=== PATIENT | male | born 1980 | race Caucasian/White ===

== ENCOUNTER 2017-11-16 19:50 | Emergency (ER) | payer SELFPAY ==
[2017-11-16 20:02] VITALS: BP 141/87; PULSE 98; O2SAT 95
--- NOTE | 2017-11-16 20:23 | ERPHSYRPT ---
- History of Present Illness Time Seen by Provider: 11/16/17 20:21 Source: patient, police Exam Limitations: no limitations Patient Subjective Stated Complaint: pt got pulled over and is here for medical clearance. Triage Nursing Assessment: see above Physician History: 37-year-old male brought into the emergency room after police called them drinking and driving, so they brought him in for medical clearance so that they can put him back in assisted. Timing/Duration: today Allergies/Adverse Reactions: No Known Drug Allergies Allergy (Verified 01/03/16 13:45) Home Medications: Clonazepam 0.5 mg PO BID 01/03/16 [History] Divalproex Sodium [Depakote] 1,500 mg PO DAILY 01/03/16 [History] Hx Tetanus, Diphtheria Vaccination/Date Given: Yes Hx Influenza Vaccination/Date Given: No Hx Pneumococcal Vaccination/Date Given: No Immunizations Up to Date: Yes - Review of Systems Constitutional: No Fever, No Chills Eyes: No Symptoms Ears, Nose, & Throat: No Symptoms Respiratory: No Cough, No Dyspnea Cardiac: No Chest Pain, No Edema, No Syncope Abdominal/Gastrointestinal: No Abdominal Pain, No Nausea, No Vomiting, No Diarrhea Genitourinary Symptoms: No Dysuria Musculoskeletal: No Back Pain, No Neck Pain Skin: No Rash Neurological: No Dizziness, No Focal Weakness, No Sensory Changes Psychological: No Symptoms Endocrine: No Symptoms All Other Systems: Reviewed and Negative - Past Medical History Pertinent Past Medical History: Yes Neurological History: No Pertinent History ENT History: No Pertinent History Cardiac History: No Pertinent History Respiratory History: No Pertinent History Endocrine Medical History: No Pertinent History Musculoskeletal History: No Pertinent History GI Medical History: No Pertinent History History: No Pertinent History Psycho-Social History: No Pertinent History Male Reproductive Disorders: No Pertinent History - Past Surgical History Past Surgical History: Yes Neuro Surgical History: No Pertinent History Cardiac: No Pertinent History Respiratory: No Pertinent History Gastrointestinal: No Pertinent History Genitourinary: No Pertinent History Musculoskeletal: Orthopedic Surgery Male Surgical History: No Pertinent History Other Surgical History: pins placed for tibia and fibia - Social History Smoking Status: Current every day smoker How long have you smoked: 20 Exposure to second hand smoke: Yes Drug Use: none, other Patient Lives Alone: No - Nursing Vital Signs Nursing Vital Signs: Initial Vital Signs Temperature 98.2 F 11/16/17 19:50 Pulse Rate 98 H 11/16/17 19:50 Respiratory Rate 18 11/16/17 19:50 Blood Pressure 141/87 11/16/17 19:50 O2 Sat by Pulse Oximetry 95 11/16/17 19:50 Pain Scale Pain Intensity 0 - Physical Exam General Appearance: no apparent distress, alert Eye Exam: PERRL/EOMI, eyes nml inspection Ears, Nose, Throat Exam: normal ENT inspection, TMs normal, pharynx normal, moist mucous membranes Neck Exam: normal inspection, non-tender, supple, full range of motion Respiratory Exam: normal breath sounds, lungs clear, No respiratory distress Cardiovascular Exam: regular rate/rhythm, normal heart sounds, normal peripheral pulses Gastrointestinal/Abdomen Exam: soft, normal bowel sounds, No tenderness, No mass Back Exam: normal inspection, normal range of motion, No CVA tenderness, No vertebral tenderness Extremity Exam: normal inspection, normal range of motion, pelvis stable Neurologic Exam: alert, oriented x 3, cooperative, normal mood/affect, nml cerebellar function, nml station & gait, sensation nml, No motor deficits Skin Exam: normal color, warm, dry, No rash Lymphatic Exam: No adenopathy SpO2: 95 Oxygen Delivery: Room Air - Course Nursing assessment & vital signs reviewed: Yes Ordered Tests: Active Orders 24 hr Category Date Time Status ETHYL ALCOHOL Stat Lab 11/16/17 20:13 Ordered Urine Triage Profile Stat Lab 11/16/17 20:13 Uncollected - Progress Progress: improved Progress Note: 11/16/17 20:34 Patient has refused for blood draw for alcohol level. Patient is otherwise hemodynamically stable, alert, awake, oriented to time, place and person and answer all the questions appropriately. So we will send patient back into the police custody with medical clearance. Counseled pt/family regarding: drug and/or alcohol abuse, diagnosis - Departure Time of Disposition: 20:35 Departure Disposition: Care Home/Long-Term Clinical Impression: Alcohol abuse, episodic drinking behavior Condition: Stable Critical Care Time: No Referrals: DOCTOR,NO FAMILY [Primary Care Provider] - Instructions: Alcohol Abuse and Alcoholism (DC)
== END 2017-11-16 20:38 | disposition home or self-care (01) ==
LOC: ED 19:50
DX: F10.10 Alcohol abuse, uncomplicated (principal)
CPT/HCPCS: 99283

== ENCOUNTER 2020-04-21 16:25 | Emergency (ER) | payer OTHER ==
--- NOTE | 2020-04-21 16:27 | ERPHSYRPT ---
- History of Present Illness Time Seen by Provider: 04/21/20 16:27 Source: patient Exam Limitations: no limitations Physician History: This is a 40-year-old white male who was scratched by his dog this past weekend. He was keeping it clean with daily showers but noticed that the redness was not going away there was some blistering in this area. Patient does wear hat at work it does tend to rub on that site. He noticed some blistering today with a little bit of white drainage from one of the blister sites and he thought maybe it should be evaluated. Patient has not had fevers. There is not a lot of pain present. Occurred: other (This past weekend) Severity: mild Head Injury Location: frontal (Right forehead) Method of Injury: other (Dog scratch) Loss of Consciousness: no loss of consciousness Associated Symptoms: denies symptoms Allergies/Adverse Reactions: No Known Drug Allergies Allergy (Verified 04/21/20 16:32) Hx Tetanus, Diphtheria Vaccination/Date Given: Yes Hx Influenza Vaccination/Date Given: No Hx Pneumococcal Vaccination/Date Given: No Travel Risk - International Travel Have you traveled outside of the country in past 3 weeks: No - Coronavirus Screening Are you exhibiting any of the following symptoms?: No Close contact with a COVID-19 positive Pt in past 14-21 Days: No - Review of Systems Constitutional: No Symptoms Eyes: No Symptoms Ears, Nose, & Throat: No Symptoms Respiratory: No Symptoms Cardiac: No Symptoms Abdominal/Gastrointestinal: No Symptoms Genitourinary Symptoms: No Symptoms Musculoskeletal: No Symptoms Skin: Cellulitis (Mild localized right forehead) Neurological: No Symptoms Psychological: No Symptoms Endocrine: No Symptoms Hematologic/Lymphatic: No Symptoms Immunological/Allergic: No Symptoms All Other Systems: Reviewed and Negative - Past Medical History Pertinent Past Medical History: Yes Neurological History: No Pertinent History ENT History: No Pertinent History Cardiac History: No Pertinent History Respiratory History: No Pertinent History Endocrine Medical History: No Pertinent History Musculoskeletal History: No Pertinent History GI Medical History: No Pertinent History History: No Pertinent History Psycho-Social History: No Pertinent History Male Reproductive Disorders: No Pertinent History - Past Surgical History Past Surgical History: Yes Neuro Surgical History: No Pertinent History Cardiac: No Pertinent History Respiratory: No Pertinent History Gastrointestinal: No Pertinent History Genitourinary: No Pertinent History Musculoskeletal: Orthopedic Surgery Male Surgical History: No Pertinent History Other Surgical History: pins placed for tibia and fibia - Social History Smoking Status: Current every day smoker How long have you smoked: 20 Exposure to second hand smoke: Yes Drug Use: none, other Patient Lives Alone: No - Nursing Vital Signs Nursing Vital Signs: Initial Vital Signs Temperature 98.4 F 04/21/20 16:33 Pulse Rate 79 04/21/20 16:33 Respiratory Rate 18 04/21/20 16:33 Blood Pressure 127/110 04/21/20 16:33 O2 Sat by Pulse Oximetry 99 04/21/20 16:33 Pain Scale Pain Intensity 3 - Ivan Coma Score Best Eye Response ([place]): (4) open spontaneously Best Verbal Response ([place]): (5) oriented Best Motor Response (Ivan): (6) obeys commands Ivan Total: 15 - Physical Exam General Appearance: no apparent distress, alert Head Injury: tenderness (Single line abrasions with healing eschar overlying measuring approximately 2-1/2 cm. There is redness with a few blisters present. 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 The area was cleaned and scrubbed with a 2 x 2 gauze and Hibiclens saline solution. No expressible pus present. There is a healed abrasion site that is linear and with eschar present) Lymphatic Exam: No adenopathy SpO2 Interpretation: normal O2 Delivery: Room Air - Course Nursing assessment & vital signs reviewed: Yes Ordered Tests: Medication Summary Discontinued Medications Generic Name Dose Route Start Last Admin Trade Name Freq PRN Reason Stop Dose Admin Ceftriaxone Sodium 1,000 mg 04/21/20 17:03 04/21/20 17:41 Rocephin 1000 Mg Inj IM 04/21/20 17:04 1,000 mg STAT ONE Administration Ceftriaxone Sodium Confirm 04/21/20 17:35 Rocephin 1000 Mg Inj Administered 04/21/20 17:36 Dose 1,000 mg .ROUTE .STK-MED ONE Lidocaine HCl Confirm 04/21/20 17:35 Xylocaine 1% Hcl 20 Ml Mdv Administered 04/21/20 17:36 Dose 3 ml .ROUTE .STK-MED ONE Trimethoprim/Sulfamethoxazole 1 tab 04/21/20 17:29 04/21/20 17:41 Bactrim Ds Tablet PO 04/21/20 17:30 1 tab STAT STA Administration Trimethoprim/Sulfamethoxazole Confirm 04/21/20 17:35 Bactrim Ds Tablet Administered 04/21/20 17:36 Dose 1 tab PO .STK-MED ONE - Progress Progress: unchanged Counseled pt/family regarding: diagnosis, need for follow-up - Departure Departure Disposition: Home Clinical Impression: Dog scratch, Cellulitis Condition: Stable Critical Care Time: No Referrals: DOCTOR,NO FAMILY [Primary Care Provider] - Additional Instructions: Keep area clean daily with soap and water. Scrub the site with soap and water and washcloth. Do not use lotions ointments or creams. May cover site with a large bandage to prevent your work hat rubbing up against the abrasion/cellulitis site. Use Tylenol and ibuprofen for pain. Take your a ntibiotics as prescribed. Follow-up with your primary care physician for persistent symptoms. Prescriptions: Amoxicillin/Potassium Clav [Augmentin 500-125 Tablet] 1 each PO TID #15 tablet
[2020-04-21] MEDS ORDERED: Rocephin 1000 MG INJ IM ONE (17:03)
[2020-04-21] MEDS ORDERED: BACTRIM DS TABLET PO STA (17:29)
[2020-04-21] MEDS ORDERED: XYLOCAINE 1% HCL 20 ML MDV ONE (17:35)
[2020-04-21] MEDS ORDERED: BACTRIM DS TABLET PO ONE (17:35)
[2020-04-21] MEDS ORDERED: Rocephin 1000 MG INJ ONE (17:35)
[2020-04-21 17:55] VITALS: PULSE 74; O2SAT 98
[2020-04-21 18:03] VITALS: BP 127/91
== END 2020-04-21 18:03 | disposition home or self-care (01) ==
LOC: ED 16:25
DX: L03.811 Cellulitis of head [any part, except face] (principal); S00.81XA Abrasion of other part of head, initial encounter
CPT/HCPCS: 96372; 99283; J0696; A9270-GY

== ENCOUNTER 2021-12-10 15:30 | Emergency (ER) | payer OTHER ==
[2021-12-10] MEDS ORDERED: MORPHINE SULFATE 4 MG INJ IV ONE (15:43)
[2021-12-10] MEDS ORDERED: Zofran 4 MG/2 ML VIAL IV ONE (15:43)
[2021-12-10] MEDS ORDERED: Zofran 4 MG/2 ML VIAL ONE (15:49)
[2021-12-10] MEDS ORDERED: MORPHINE SULFATE 4 MG INJ ONE (15:49)
[2021-12-10 17:41] VITALS: BP 128/70
[2021-12-10] MEDS ORDERED: BACIGUENT PACKET ONE (17:43)
[2021-12-10] MEDS ORDERED: BACIGUENT PACKET TP ONE (17:44)
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
[2021-12-10 18:02] VITALS: PULSE 70; O2SAT 97
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
== END 2021-12-10 18:02 | disposition home or self-care (01) ==
LOC: ED 15:30
DX: S40.011A Contusion of right shoulder, initial encounter (principal); S16.1XXA Strain of muscle, fascia and tendon at neck level, initial encounter; S40.811A Abrasion of right upper arm, initial encounter; W16.122A Fall into natural body of water striking bottom causing other injury, initial encounter; Y93.39 Activity, other involving climbing, rappelling and jumping off; Z72.0 Tobacco use; Z28.310 Unvaccinated for COVID-19
CPT/HCPCS: 36000; 70450; 71250; 72125; 73030; 73080; 96374; 96375; 99284; J2270; J2405; A9270-GY

== ENCOUNTER 2023-07-17 09:50 | Emergency (ER) | payer OTHER ==
[2023-07-17 10:10] VITALS: TEMP 98.5
--- NOTE | 2023-07-17 10:24 | ERPHSYRPT ---
- History of Present Illness Time Seen by Provider: 07/17/23 10:10 Historian: patient Exam Limitations: no limitations Patient Subjective Stated Complaint: black stools since Sunday, diarrhea, N&V yesterday Triage Nursing Assessment: Pt brought to the ER by his , hypertensive, rates abdominal discomfort at 3/10, pain to upper medial area of abdomen, black stools since Sunday, N&V on Sunday, diarrhea since Sunday, pulses normal, skin n/w/d, walked into the ER with a stable gait, doesn't appear to be in any distress Physician History: 43-year-old male presents emergency department as a referral from [facility] for evaluation of dark stools. Patient reports nausea vomiting diarrhea. Epigastric pain rated 3 out of 10. Patient reports he has been taking ibuprofen for back pain. Symptoms are constant. Symptoms are moderate in intensity. No specific worsening or improving factors. Patient states he is otherwise healthy. He voices no other complaints or concerns at this time. Portions of this note were created with voice recognition technology. There may be grammatical, spelling, punctuation or sound alike errors Timing/Duration: day(s) (2 days) Activities at Onset: none Quality: aching Pain Radiation: epigastric Severity of Pain-Max: moderate Severity of Pain-Current: mild Modifying Factors: Improves With: nothing Associated Symptoms: denies symptoms Previous symptoms: no prior history Allergies/Adverse Reactions: No Known Drug Allergies Allergy (Verified 07/17/23 10:10) Home Medications: Hydroxyzine HCl 25 mg [Atarax 25 mg] 25 mg PO TID 07/17/23 [History] Hx Tetanus, Diphtheria Vaccination/Date Given: Yes Hx Influenza Vaccination/Date Given: No Hx Pneumococcal Vaccination/Date Given: No Travel Risk - International Travel Have you traveled outside of the country in past 3 weeks: No - Coronavirus Screening Are you exhibiting any of the following symptoms?: No Close contact with a COVID-19 positive Pt in past 14-21 Days: No - Vaccine Status Have you recieved a Covid-19 vaccination: No - Review of Systems Constitutional: No Symptoms, No Fever, No Chills Eyes: No Symptoms Ears, Nose, & Throat: No Symptoms Respiratory: No Symptoms, No Cough, No Dyspnea Cardiac: No Symptoms, No Chest Pain, No Edema, No Syncope Abdominal/Gastrointestinal: No Symptoms, No Abdominal Pain, No Nausea, No Vomiting, No Diarrhea Genitourinary Symptoms: No Symptoms, No Dysuria Musculoskeletal: No Symptoms, No Back Pain, No Neck Pain Skin: No Symptoms, No Rash Neurological: No Symptoms, No Dizziness, No Focal Weakness, No Sensory Changes Psychological: No Symptoms Endocrine: No Symptoms Hematologic/Lymphatic: No Symptoms Immunological/Allergic: No Symptoms All Other Systems: Reviewed and Negative - Past Medical History Pertinent Past Medical History: Yes Neurological History: No Pertinent History ENT History: No Pertinent History Cardiac History: No Pertinent History, Hypertension Respiratory History: No Pertinent History Endocrine Medical History: No Pertinent History Musculoskeletal History: No Pertinent History GI Medical History: No Pertinent History History: No Pertinent History Psycho-Social History: No Pertinent History Male Reproductive Disorders: No Pertinent History Other Medical History: PSH: L FOOT SURGERY X 2. PMH: ANXIETY - Past Surgical History Past Surgical History: Yes Neuro Surgical History: No Pertinent History Cardiac: No Pertinent History Respiratory: No Pertinent History Gastrointestinal: No Pertinent History Genitourinary: No Pertinent History Musculoskeletal: Orthopedic Surgery Male Surgical History: No Pertinent History Other Surgical History: pins placed for tibia and fibia - Social History Smoking Status: Current every day smoker How long have you smoked: 20 Exposure to second hand smoke: Yes Drug Use: marijuana, other Patient Lives Alone: No - Nursing Vital Signs Nursing Vital Signs: Initial Vital Signs Temperature 98.5 F 07/17/23 09:58 Pulse Rate 71 07/17/23 09:58 Blood Pressure 144/97 07/17/23 09:58 O2 Sat by Pulse Oximetry 98 07/17/23 09:58 Pain Scale Pain Intensity 3 - Physical Exam General Appearance: no apparent distress, alert Eye Exam: PERRL/EOMI, eyes nml inspection Ears, Nose, Throat Exam: normal ENT inspection, pharynx normal, moist mucous membranes Neck Exam: normal inspection, non-tender, supple, full range of motion Respiratory Exam: normal breath sounds, lungs clear, airway intact, No respiratory distress Cardiovascular Exam: regular rate/rhythm, normal heart sounds, normal peripheral pulses Gastrointestinal/Abdomen Exam: soft, No tenderness, No mass Back Exam: normal inspection, normal range of motion, No CVA tenderness, No vertebral tenderness Extremity Exam: normal inspection, normal range of motion, pelvis stable Neurologic Exam: alert, oriented x 3, cooperative, normal mood/affect, nml cereb ellar function, sensation nml, No motor deficits Skin Exam: normal color, warm, dry Lymphatic Exam: No adenopathy SpO2 Interpretation: normal SpO2: 98 O2 Delivery: Room Air - Course Nursing assessment & vital signs reviewed: Yes - CT Exams Abdomen/Pelvis CT Interpretation: Tele-radiologist Report (CT abdomen pelvis reveals a right lower lobe granuloma and enteritis versus ileus. Otherwise negative) Ordered Tests: Active Orders 24 hr Category Date Time Status IV Insertion STAT Care 07/17/23 10:18 Active ABDOMEN AND PELVIS W/0 CONTRAS [CT] Stat Exams 07/17/23 10:20 Completed CBC W DIFF Stat Lab 07/17/23 10:18 Completed CMP Stat Lab 07/17/23 10:25 Completed LIPASE Stat Lab 07/17/23 10:25 Completed UA W/RFX UR CULTURE Stat Lab 07/17/23 10:20 Ordered Medication Summary Generic Name Dose Route Start Last Admin Trade Name Freq PRN Reason Stop Dose Admin Sodium Chloride 1,000 mls @ 999 mls/hr 07/17/23 10:18 07/17/23 10:53 Sodium Chloride 0.9% 1000 Ml IV 07/17/23 11:18 999 mls/hr .Q1H1M STA Administration Discontinued Medications Generic Name Dose Route Start Last Admin Trade Name Freq PRN Reason Stop Dose Admin Sodium Chloride Confirm 07/17/23 10:52 Sodium Chloride 0.9% 1000 Ml Administered 07/17/23 10:53 Dose 1,000 mls @ ud .ROUTE .STK-MED ONE Lab/Rad Data: Laboratory Result Diagrams 07/17/23 10:18 07/17/23 10:25 Laboratory Results 07/17/23 07/17/23 Range/Units 10:25 10:18 WBC 3.8 L (4.0-10.5) x10^3/uL RBC 4.73 (4.1-5.6) x10^6/uL Hgb 15.3 (12.5-18.0) g/dL Hct 44.9 (42-50) % MCV 94.9 (78-100) fL MCH 32.3 H (26-32) pg MCHC 34.1 (32-36) g/dL RDW 12.0 (11.5-14.0) % Plt Count 247 (150-450) x10^3/uL MPV 9.6 (7.5-11.0) fL Gran % 57.6 (36.0-66.0) % Immature Gran % (Auto) 0.3 (0.00-0.4) % Nucleat RBC Rel Count 0.0 (0.00-0.1) % Eos # (Auto) 0.11 (0-0.5) x10^3/uL Immature Gran # (Auto) 0.01 (0.00-0.03) x10^3u/L Absolute Lymphs (auto) 1.04 (1.0-4.6) x10^3/uL Absolute Monos (auto) 0.42 (0.0-1.3) x10^3/uL Absolute Nucleated RBC 0.00 (0.00-0.01) x10^3u/L Lymphocytes % 27.6 (24.0-44.0) % Monocytes % 11.1 (0.0-12.0) % Eosinophils % 2.9 (0.00-5.0) % Basophils % 0.5 (0.0-0.4) % Absolute Granulocytes 2.17 (1.4-6.9) x10^3/uL Basophils # 0.02 (0-0.4) x10^3/uL Sodium 138 (135-145) mmol/L Potassium 4.2 (3.5-5.1) mmol/L Chloride 99 (98-107) mmol/L Carbon Dioxide 29 (22-30) mmol/L Anion Gap 13.6 (5-15) MEQ/L BUN 16 (9-20) mg/dL Creatinine 0.72 (0.66-1.25) mg/dL Estimated GFR 116.3 ML/MIN Glucose 94 (74-106) mg/dL Calcium 8.9 (8.4-10.2) mg/dL Total Bilirubin 0.70 (0.2-1.3) mg/dL AST 28 (17-59) U/L ALT 16 (0-50) U/L Alkaline Phosphatase 49 (38-126) U/L Serum Total Protein 7.6 (6.3-8.2) g/dL Albumin 4.7 (3.5-5.0) g/dL Lipase 211 (23-300) U/L - Progress Progress: improved Progress Note: 43-year-old male presents to our ED as a referral from [facility] for dark tarry stools. Patient describes some abdominal pain. Physical exam otherwise nonremarkable. Laboratory workup nonremarkable. CT scan reveals an ileus versus enteritis. Patient states that he has been taking ibuprofen for back pain. Patient advised discontinue the ibuprofen. Patient to take Tylenol as recommended. Patient will require follow-up for outpatient endoscopy. We contacted patient's primary care doctor. They will be contacting outpatient for follow-up. Patient voices no other complaints or concerns at this time. Patient resting comfortably. Patient declined pain medication. Patient received a dose of Protonix in our ED. A prescription for the same was forwarded to patient's pharmacy. Significant other at bedside. They voiced no other complaints or concerns at this time. Portions of this note were created with voice recognition technology. There may be grammatical, spelling, punctuation or sound alike errors Complexity problem addressed is moderate acute complicated No critical care time Complex of data reviewed and analyzed is moderate. Test ordered test reviewed. Results analyzed and correlated clinically with history and physical exam. Risk of complication and or risk of morbidity/mortality of patient management is moderate. A prescription for Protonix forwarded to patient's pharmacy Vital stable. Time spent to discharge patient approximately 20 minutes. Plan of care established for shared decision making. No social determinants of health present impede follow-up. Portions of this note were created with voice recognition technology. There may be grammatical, spelling, punctuation or sound alike errors 07/17/23 11:11 Counseled pt/family regarding: lab results, diagnosis, need for follow-up, rad results - Departure Departure Disposition: Home Clinical Impression: Ileus, Enteritis, Dark stools, Epigastric pain, Lung granuloma Condition: Stable Critical Care Time: No Referrals: MANI SKY [Primary Care Provider] - Follow up/PCP as directed Additional Instructions: Discharge/Care Plan SERGO GOFF was seen on 07/17/23 in the Emergency Room. The patient was counseled regarding Diagnosis,Lab results, Imaging studies, need for follow up and when to return to the Emergency Room. Prescriptions given: Discharge Note I have spoken with the patient and/or caregivers. I have explained the patient's condition, diagnosis and treatment plan based on the information available to me at this time. I have answered the patient's and/or caregiver's questions and addressed any concerns. The patient and/or caregivers have as good understanding of the patient's diagnosis, condition and treatment plan as can be expected at this point. The vital signs have been stable. The patient's condition is stable and appropriate for discharge from the emergency department. The patient will pursue further outpatient evaluation with the primary care physician or other designated or consulting physician as outlined in the discharge instructions. The patient and/or caregivers are agreeable to this plan of care and follow-up instructions have been explained in detail. The patient and/or caregivers have received these instruction. The patient/and or caregivers are aware that any significant change in condition or worsening of symptoms should prompt an immediate return to this or the closest emergency department or call 911. Prescriptions: PANTOPRAZOLE 40 mg Tablet [Protonix 40MG Tablet] 40 mg PO QAM 14 Days #14 tab
[2023-07-17 10:31] LABS: Absolute Neutrophil Ct (ANC) 2.17 x10^3/uL (1.4-6.9); BASOPHIL % 0.5 % (0.0-0.4); Basophil (Absolute #) 0.02 x10^3/uL (0-0.4); Eosinophil % 2.9 % (0.00-5.0); Eosinophil (Absolute #) 0.11 x10^3/uL (0-0.5); Hematocrit 44.9 % (42-50); Hemoglobin 15.3 g/dL (12.5-18.0); IMMATURE GRAN # 0.01 x10^3u/L (0.00-0.03); IMMATURE GRAN % 0.3 % (0.00-0.4); Lymphocyte (Absolute #) 1.04 x10^3/uL (1.0-4.6); Lymphocytes % 27.6 % (24.0-44.0); Mean Cell Volume 94.9 fL (78-100); Mean Corpuscular Hemoglobin 32.3 pg (26-32); Mean Corpuscular Hgb Concent. 34.1 g/dL (32-36); Mean Platelet Volume 9.6 fL (7.5-11.0); Monocyte (Absolute #) 0.42 x10^3/uL (0.0-1.3); Monocytes % 11.1 % (0.0-12.0); Neutrophil % 57.6 % (36.0-66.0); Platelet Count 247 x10^3/uL (150-450); Red Blood Count 4.73 x10^6/uL (4.1-5.6); White Blood Count 3.8 x10^3/uL (4.0-10.5)
[2023-07-17 10:44] LABS: ALBUMIN 4.7 g/dL (3.5-5.0); ANION GAP 13.6 MEQ/L (5-15); BILIRUBIN,TOTAL 0.7 mg/dL (0.2-1.3); Calcium 8.9 mg/dL (8.4-10.2); Creatinine 1 0.72 mg/dL (0.66-1.25); EST GLOMERULAR FILTRATION RATE 116.3 ML/MIN; Potassium 4.2 mmol/L (3.5-5.1); Total Protein 7.6 g/dL (6.3-8.2)
--- NOTE | 2023-07-17 10:49 | XRAY ---
Indication: Pain. Multiple contiguous axial images obtained through the abdomen and pelvis without contrast. Impression: None Lung bases clear with incidental right lower lobe calcified granuloma. Heart not enlarged. Radiopacities scattered throughout colon either ingested medication, bismuth, or barium. Noncontrasted stomach and bowel loops appear nonobstructed. Several small bowel loops are mildly fluid distended with circumferential wall thickening, ileus versus enteritis. Normal air-filled appendix. No free fluid/air. Remaining liver, gallbladder, pancreas, spleen, adrenal glands, kidneys, ureters, bladder, and aorta are unremarkable for noncontrast exam. Osseous structures intact. Impression: 1. Mild fluid distended small bowel loops with circumferential wall thickening, ileus versus enteritis. 2. Remaining CT abdomen/pelvis without contrast exam is negative.
[2023-07-17] MEDS ORDERED: Sodium Chloride 0.9% 1000 ML 1,000 ML ONE (10:52)
[2023-07-17] MEDS: Sodium Chloride 0.9% 1000 ML 1,000 ML IV STA (10:53)
[2023-07-17 11:08] VITALS: BP 152/70; PULSE 68
[2023-07-17 11:09] VITALS: O2SAT 98
[2023-07-17] MEDS ORDERED: PROTONIX 40 MG IV IV ONE (11:12)
[2023-07-17] MEDS: PROTONIX 40 MG IV IV ONE (11:13)
[2023-07-17 11:16] LABS: Appearance Clear (Clear); Bacteria None Seen /HPF (None Seen); Bilirubin Negative (Negative); Blood Negative (Negative); Epithelial Cells None Seen /HPF (None Seen); Glucose, Urine Negative (Negative); Hyaline Casts NONE SEEN /LPF (0-2); Ketones Negative (Negative); Leukocyte Esterase Negative (Negative); Nitrite Negative (Negative); Ph 7.5 (4.6-8.0); Protein,Urine Dip Negative (Negative); RBC 0-2 /HPF (0-5); WBC 0-2 /HPF (0-5)
[2023-07-17 11:41] LABS: ADD URINE CULTURE? NO (NO)
== END 2023-07-17 11:29 | disposition home or self-care (01) ==
LOC: ED 09:50
DX: K56.7 Ileus, unspecified (principal); K52.9 Noninfective gastroenteritis and colitis, unspecified; R11.2 Nausea with vomiting, unspecified; R10.10 Upper abdominal pain, unspecified; F17.200 Nicotine dependence, unspecified, uncomplicated
CPT/HCPCS: 36000; 36415; 74176; 80053; 81001; 83690; 85025; 96374; 99284